=== PATIENT | female | born 2000 | race Caucasian/White ===

== ENCOUNTER 2022-11-05 13:07 | Emergency (ER) | payer MEDICARE, SELFPAY ==
--- NOTE | 2022-11-05 13:32 | ED_ITS ---
HPI - Back Pain/Injury <SERGIO Shrestha Last Filed: 11/05/22 18:21> General Chief Complaint: Urogenital-Female Stated Complaint: cervical pain pinching Time Seen by Provider: 11/05/22 13:30 History of Present Illness HPI Narrative: This is a 22-year-old female presents emergency department due to a ?pinching? sensation to her cervix. She states this began about an hour ago. She states that it feels like when the vineyard tender grabbed the cervix when placing an IUD. She denies any vaginal discharge or bleeding. She states she is having some mild cramping in her lower abdomen. Denies any dysuria, urinary frequency, urinary hesitancy, or any other urinary complaints. Denies any fevers, nausea, vomiting, or any other systemic complaints. Patient had IUD placed about a year ago by her PCP without incident. Related Data Previous Rx's Medication Instructions Recorded nitrofurantoin 100 mg PO Q12H 5 days #10 caps 11/05/22 monohydrate/macrocrystals 100 mg capsule (Macrobid) Review of Systems <Himanshu Bautista PA-C - Last Filed: 11/05/22 18:21> Review of Systems Narrative: GENERAL: Denies chills, fatigue, malaise, fever, sweats. HEENT: Denies sinus pain, ear pain, sore throat, difficulty swallowing, dizziness. RESPIRATORY: Denies dyspnea, cough, wheezing, hemoptysis, sputum. CARDIOVASCULAR: Denies chest pain, palpitations, orthopnea, edema, GASTROINTESTINAL: Denies nausea, vomiting, abdominal pain, diarrhea, constipation, melena. : Reports cervical pain, Denies dysuria, frequency, incontinence, hematuria, urinary retention. MUSCULOSKELETAL: denies weakness, joint pain, or bony pain SKIN: Denies rash, skin lesions, or other NEUROLOGIC: Denies weakness, headache, numbness, change in speech, confusion, seizures, incoordination. PSYCHIATRIC: No concerning psychosocial issues. 12 point review of systems is negative except for those stated above Patient History <SERGIO Shrestha Last Filed: 11/05/22 18:21> Social History Smoking Status: Never smoker Exam <SERGIO Shrestha Last Filed: 11/05/22 18:21> Narrative Exam Narrative: GENERAL: Well-developed patient, in mild distress. HEAD: Atraumatic. Normocephalic. EYES: Pupils equal round and reactive. Extraocular motions intact. No scleral icterus. No injection or drainage. ENT: Nose without bleeding, purulent drainage. Throat without erythema, tonsillar hypertrophy or exudate. Airway patent. NECK: Trachea midline. Non tender CARDIOVASCULAR: Regular rate and rhythm without murmurs, gallops, or rubs. RESPIRATORY: Clear to auscultation. Breath sounds equal bilaterally. No wheezes, rales, or rhonchi. GASTROINTESTINAL: Abdomen soft, non-tender, nondistended. EXTREMITIES: No edema or joint tenderness. BACK: Nontender without deformity or crepitance. No flank tenderness. NEURO: AOx3. SKIN: No rash or erythema of visible areas : Performed with special forces specialist in room. No abnormalities noted, IUD strings visible Initial Vital Signs Initial Vital Signs: Vital Signs Temperature 97.2 F L 11/05/22 13:33 Pulse Rate 93 H 11/05/22 13:33 Respiratory Rate 18 11/05/22 13:33 Blood Pressure 166/96 H 11/05/22 13:33 Pulse Oximetry 98 11/05/22 13:33 Oxygen Delivery Method Room Air 11/05/22 13:33 <DO Abad Christine Last Filed: 11/06/22 07:09> Initial Vital Signs Initial Vital Signs: Vital Signs Temperature 97.2 F L 11/05/22 13:33 Pulse Rate 93 H 11/05/22 13:33 Respiratory Rate 18 11/05/22 13:33 Blood Pressure 166/96 H 11/05/22 13:33 Pulse Oximetry 98 11/05/22 13:33 Oxygen Delivery Method Room Air 11/05/22 13:33 Course <Himanshu Bautista PA-C - Last Filed: 11/05/22 18:21> Orders Ordered: ED Orders 11/05/22 12:34 Urine Culture Stat Urine Microscopic Stat 11/05/22 13:57 US pelvic complete Stat Vital Signs Vital signs: Vital Signs - 8 hr 11/05/22 13:33 11/05/22 15:23 Temperature 97.2 F L Pulse Rate 93 H 75 Respiratory Rate 18 18 Blood Pressure 166/96 H 137/63 Pulse Oximetry 98 98 Oxygen Delivery Method Room Air Room Air <DO Abad Christine Last Filed: 11/06/22 07:09> Orders Ordered: ED Orders 11/05/22 12:34 Urine Culture Stat Urine Microscopic Stat 11/05/22 13:57 US pelvic complete Stat Vital Signs Vital signs: Vital Signs - 8 hr 11/05/22 13:33 11/05/22 15:23 Temperature 97.2 F L Pulse Rate 93 H 75 Respiratory Rate 18 18 Blood Pressure 166/96 H 137/63 Pulse Oximetry 98 98 Oxygen Delivery Method Room Air Room Air MDM - Back Pain/Injury <Himanshu Bautista PA-C - Last Filed: 11/05/22 18:21> Lab Data Labs: Lab Results 11/05/22 Range/Units 12:34 Urine RBC 30-100/hpf H (0-5/HPF) Urine WBC 1-5/hpf (0-5/HPF) Ur Squamous Epith Cells >30 /hpf H (0-5/HPF) Urine Bacteria Moderate (10-30) H (None) Urine Mucus 1+ H (Negative) Ur Culture Indicated? Specimen cultured Point of Care Testing Test Results Negative Urine Dip Bedside Urine Glucose Negative Bedside Urine Bilirubin - Negative Bedside Urine Ketone - Negative Urine Specific Cameron 1.025 Bedside Urine Occult Blood +++ Bedside Urine pH 6.0 Bedside Urine Protein + 30 Bedside Urine Urobilinogen - Negative Bedside Urine Nitrite - Negative Bedside Urine Leukocytes + 70 Esterase MDM Narrative Medical decision making narrative: MDM * differential diagnosis includes but not limited to UTI, ectopic , ovarian torsion, gastroenteritis, displaced IUD * Prior records reviewed: Patient has not been seen in this emergency department in the past. * My lab interpretation: Patient's urine came back negative but did show evidence of UTI with positive leukocytes and blood. * My imgaing interpretation: * Clinical Decision Rules/Scores evaluated: None * Independent discussions with: None ED Course: This is a 22-year-old female presents to the emergency department due to acute onset cervix pain onset just 1 hour prior to arrival. Patient states she felt a ?pinching sensation. Urine test was negative but did show evidence of UTI and will treat with antibiotics. Pelvic exam performed in no abnormalities noted. Pelvic ultrasound performed to check IUD placement and per communication technician the IUD was in the lower left segment rather than the fundus where should be. Discussed this with on-call membership coordinator, Dr. Zepeda, who stated that the patient should call her clinic to arrange for an appointment for removal of the IUD and replacement. Assistance Very much appreciated. Shared Decision Making: Discussed plan with the patient who is comfortable with the plan. Social Considerations: None Disposition: Discharged to home <Alondra Collette, DO - Last Filed: 11/06/22 07:09> Lab Data Labs: Lab Results 11/05/22 Range/Units 12:34 Urine RBC 30-100/hpf H (0-5/HPF) Urine WBC 1-5/hpf (0-5/HPF) Ur Squamous Epith Cells >30 /hpf H (0-5/HPF) Urine Bacteria Moderate (10-30) H (None) Urine Mucus 1+ H (Negative) Ur Culture Indicated? Specimen cultured Point of Care Testing Test Results Negative Urine Dip Bedside Urine Glucose Negative Bedside Urine Bilirubin - Negative Bedside Urine Ketone - Negative Urine Specific Cameron 1.025 Bedside Urine Occult Blood +++ Bedside Urine pH 6.0 Bedside Urine Protein + 30 Bedside Urine Urobilinogen - Negative Bedside Urine Nitrite - Negative Bedside Urine Leukocytes + 70 Esterase Imaging Data US - MD PHYSICIAN DERMATOLOGIST: Radiologist's Impression: PROCEDURE:? US PELVIC COMPLETE ? INDICATIONS:? PAIN; CHECK IUD ? TECHNIQUE:? Real-time scanning was performed of the pelvic organs, with image documentation.? Additional endovaginal scanning was necessary due to incomplete visualization of the adnexal and endometrial structures by transabdominal scanning.? ? COMPARISON:? None. ? FINDINGS:? ?? Uterus:? Uterus is anteverted and normal in size at 8.8 x 3.4 x 4.0 cm. The myometrium is homogeneous. ? The endometrium measures in 2.8 mm combined thickness.? Intrauterine device noted in the lower uterine segment ? Ovaries:? The right ovary measures 3.4 x 3.0 x 2.8 cm, with a calculated ovarian volume of 15.0 cc. The left ovary measures 1.8 x 3.2 x 2.8 cm, with a calculated ovarian volume of 8.1 cc. The ovaries have a normal sonographic appearance.? 1.9 x 1.6 simple right ovarian cyst? No adnexal masses are seen. ? Other:? No pathologic free abdominal or pelvic fluid. ? ? IMPRESSION:? ? Intrauterine device low in the endometrial cavity in the lower uterine segment. ? Approved by: Fer Stark M.D. on 11/05/2022 at 15:15? Discharge Plan Departure Patient Disposition: Home Clinical Impression: IUD complication, UTI (urinary tract infection) Instructions: DI for Urinary Tract Infection (UTI) Activity Restrictions/Additional Instructions: Thank you for coming to the [facility] Emergency Department today. As we discussed it appears that your IUD has shifted into an in proper position. We spoke with our on-call MODEL AND MOLD MAKER, who recommended you call the clinic tomorrow to arrange for an appointment to be seen for replacement of the IUD. Please use ibuprofen and Tylenol as needed for the pain. It also appears that you have a UTI based on urinalysis. Please take the antibiotics as prescribed. I sent them in education to [facility] in [place]. I hope you feel better soon. Prescriptions: New nitrofurantoin monohyd/m-cryst [Macrobid] 100 mg capsule 100 mg PO Q12H 5 Days Qty: 10 0RF Rx Instructions: must administer with a meal/food Referrals: Cherrie Zepeda MD [Physician] - (f/u improperly placed IUD ) Stand Alone Forms: Patient Portal/API <Alondra Murdock DO - Last Filed: 11/06/22 07:09> Cosign ED Attending Cosmemoature Attestation: I was immediately available in the department for consultation. Documentation has been reviewed.
[2022-11-05 13:33] VITALS: BP 166/96; PULSE 93; RESP 18; TEMP 36.2; O2SAT 98; BMI 35.9
--- NOTE | 2022-11-05 13:57 | DI.US.S_ITS ---
PROCEDURE: US PELVIC COMPLETE INDICATIONS: PAIN; CHECK IUD TECHNIQUE: Real-time scanning was performed of the pelvic organs, with image documentation. Additional endovaginal scanning was necessary due to incomplete visualization of the adnexal and endometrial structures by transabdominal scanning. COMPARISON: None. FINDINGS: Uterus: Uterus is anteverted and normal in size at 8.8 x 3.4 x 4.0 cm. The myometrium is homogeneous. The endometrium measures in 2.8 mm combined thickness. Intrauterine device noted in the lower uterine segment Ovaries: The right ovary measures 3.4 x 3.0 x 2.8 cm, with a calculated ovarian volume of 15.0 cc. The left ovary measures 1.8 x 3.2 x 2.8 cm, with a calculated ovarian volume of 8.1 cc. The ovaries have a normal sonographic appearance. 1.9 x 1.6 simple right ovarian cyst No adnexal masses are seen. Other: No pathologic free abdominal or pelvic fluid. IMPRESSION: Intrauterine device low in the endometrial cavity in the lower uterine segment. Approved by: Fer Stark M.D. on 11/05/2022 at 15:15
[2022-11-05 14:12] LABS: Bacteria Urine Moderate (10-30); Mucus Urine 1+ (Negative); RBC Urine 30-100/HPF (0-5/HPF); Squamous Epithelial Cell Urine >30 /HPF (0-5/HPF); WBC Urine 1-5/HPF (0-5/HPF)
[2022-11-05 14:13] LABS: Culture Indicated Urine Specimen Cultured
[2022-11-05 15:23] VITALS: BP 137/63; PULSE 75; RESP 18; O2SAT 98
== END 2022-11-05 15:24 | disposition home or self-care (01) ==
PROVIDERS: Emergency Provider Physician Assistant Medical
DX: N39.0 Urinary tract infection, site not specified (principal); T83.9XXA Unspecified complication of genitourinary prosthetic device, implant and graft, initial encounter
CPT/HCPCS: 76830; 76856; 81003; 81015; 81025; 87086; 99283